=== PATIENT | female | born 1935 | race Caucasian/White ===

== ENCOUNTER 2018-08-29 17:11 | Emergency (ER) | payer MEDICARE, OTHER, SELFPAY ==
[2018-08-29 17:16] VITALS: BP 205/93; PULSE 72; RESP 20; TEMP 36.8; O2SAT 96
--- NOTE | 2018-08-29 18:13 | NUR.NOTE ---
patient denies nausea, double vision, patient to DI Nursing Note:
--- NOTE | 2018-08-29 18:26 | DI.CT_ITS ---
SYMPTOM/DIAGNOSIS: LT FOREHEAD TRAUMA, HEADACHE, NECK PAIN NONCONTRAST HEAD CT: There are no prior comparison exams. There is mild age related atrophy. No intracranial hemorrhage, mass or infarct is seen. There is no evidence of skull fracture or sinus opacification. There are no significant white matter changes. IMPRESSION: Negative head CT. CERVICAL SPINE CT: There is no evidence of fracture. The alignment appears normal. Degenerative disc changes are seen at C 4-5 and C 5-6. The airway appears intact. IMPRESSION: Degenerative changes. No acute abnormality. FACIAL CT: No facial fracture is identified. The orbits are unremarkable. The sinuses appear clear. There is no temporomandibular joint dislocation. There are degenerative changes of the temporomandibular joints. IMPRESSION: No acute abnormality.
[2018-08-29 19:02] VITALS: BP 187/86; PULSE 86; RESP 18; O2SAT 97
--- NOTE | 2018-08-29 19:03 | ED.GENADUL_ITS ---
Discharge Plan Disposition Patient Disposition: HOME Condition: Stable Discharge Details Chief Complaint: HeadInjury Clinical Impression: Traumatic hematoma of forehead, Hypertension, Cervical muscle strain Primary Care Provider: None,None ED Provider: Tomas Dunn Home Meds and New Rx's Prescriptions: Continued losartan 50 mg Tablet 50 mg PO DAILY RF: 0 Symbicort 160-4.5 mcg/actuation Hfa Aerosol Inhaler 1 puff Inhalation DAILY RF: 0 Citracal + Bone Density 300-200-13.5 mg-unit-mg Tablet 1 tab PO DAILY RF: 0 albuterol sulfate 90 mcg/actuation Aerosol Powdr Breath Activated 2 puff Inhalation PRN PRNRF: 0 Discharge Instructions Instructions: Cervical Strain (ED), Hypertension (ED), Hematoma (ED) Additional Instructions: Follow-up with your primary care provider for reassessment of your blood pressure preferably in the next week. You may continue to take acetaminophen as needed for discomfort and apply ice for any further swelling. Please take your other medications as prescribed and feel free to return to the emergency department for any new or significant worsening of symptoms or any further concerns you may have. Referrals: Primary Care Provider [Outside] - 1 week (For reassessment) Discharge Data Discharge Date/Time-TO BE ENTERED AT DEPARTURE: 08/29/18 19:11 Medical Decision Making Patient presenting to the emergency department for chief complaint of head injury. Patient states that approximately 4 days ago she slipped and fell striking her head against her car door. Patient denies any loss of consciousness, nausea vomiting, focal neurological deficits. Patient states that she is mostly concerned due to significant amount of bruising and ecchymosis to the face. Physical exam shows a left frontal hematoma to the forehead with what I feel is gravity dependent ecchymosis traveling down to the upper orbits bilaterally. Physical exam is otherwise unremarkable. Patient does state that she was seen at an urgent care clinic and diagnosed with hematoma but no imaging was performed. Patient denies any blood thinner use. Given patient's age and significant ecchymosis along with patient's concern I do feel that radiological imaging is warranted to rule out any acute cranial fracture but more suspicious of as mentioned above gravity dependent ecchymosis. Review of radiological imaging and radiologist interpretation shows no acute findings. Patient remained hypertensive in the emergency department and was informed that she should take her normally prescribed medication but I do not feel that any of her symptoms today have to do with her blood pressure. Patient was encouraged to follow-up with her primary care provider. Return precautions discussed. After discussion of diagnosis and plan of care patient and family have no further needs, questions, or concerns and states clear understanding to return to the emergency department for any worsening symptoms. HPI General Mode of arrival: ambulatory . Date/Time Provider Initiated Documentation: 08/29/18 17:20 . Limitations to Documentation: no limitations . Information obtained by: patient, family and RN notes reviewed . History of Present Illness 82 year old F presents to the emergency department with the chief complaint of head injury, described as mild, with intensity rated at 5. and is localized to the head. Patient started experiencing this day(s) (4) and it has been constant. No relieving factors improve symptom(s), No exacerbating factors reported . Patient notes no other symptoms.. Patient did receive the following treatments prior to arrival, other (Tylenol) Related Data Home Medications Medication Instructions Recorded Confirmed Citracal + Bone Density 1 tab PO DAILY 08/29/18 08/29/18 Symbicort 1 puff INHALATION DAILY 08/29/18 08/29/18 albuterol sulfate 2 puff INHALATION PRN PRN 08/29/18 08/29/18 losartan 50 mg PO DAILY 08/29/18 08/29/18 Allergies Allergy/AdvReac Type Severity Reaction Status Date / Time codeine AdvReac Psychosis Unverified 08/29/18 17:20 General Stated Complaint: HeadInjury THIERRY: 3 Review of Systems Constitutional Denies daytime sleepiness, Denies frequent falls, Reports headache(s), Denies lethargy and Denies poor appetite Eyes Denies blurry vision, Denies change in vision, Denies diplopia and Denies loss of vision ENT Denies vertigo, Denies dizziness, Reports headache(s) and Denies epistaxis Cardiovascular Denies chest pain, Denies syncope, Denies irregular heart rhythm and Denies dyspnea Respiratory Denies dyspnea Gastrointestinal Denies nausea and Denies vomiting Integumentary/Breasts Reports as per HPI Neurologic Reports as per HPI, Denies behavioral changes, Denies vertigo, Denies dizziness, Denies syncope, Denies frequent falls, Reports headache(s), Denies loss of vision, Denies memory loss and Denies seizure-like activity Psychiatric Denies behavioral changes and Denies memory loss PFSH Social History Smoking and Tabacco status: Former Tobacco Use Exam Const General: cooperative, comfortable and no acute distress Orientation: alert, awake and oriented x3 HENMT Head: no palpable skull fracture, no Salinas's sign, contusion left frontal, hematoma left frontal 3 in, no lacerations, no raccoon eyes and scalp tenderness Ears: hearing grossly normal bilaterally, external ears normal and TM's normal bilaterally General nose exam: external nose normal and nares normal Face and sinus: sinuses nontender Mouth: oral mucosae normal, lip normal and tongue normal Throat: posterior oropharynx normal, tonsils normal and uvula midline Eyes Visual Rice: normal visual rice by confrontation Alignment and Position: alignment normal Periorbital: periorbital findings abnormal bilaterally periorbital ecchymosis (upper orbits) Conjunctivae: conjunctivae normal Sclera: sclerae normal Cornea: corneas normal Pupils: PERRL EOM: EOM intact bilaterally and No nystagmus Neck Neck: normal visual inspection, full ROM, no lymphadenopathy and tender (left lateral soft tissue) Carotids: no bruits Resp Effort & Inspection: normal respiratory effort and able to speak in complete sentences Auscultation: clear to auscultation bilaterally Cardio Rate: regular rate Rhythm: regular rhythm Heart Sounds: S1 normal and S2 normal Neuro General: alert, awake, oriented x3, gait normal, tone normal, moves all extremities, normal light touch, pain and propioception, no meningeal signs, no focal motor deficits and CN's II-XI intact bilaterally Cranial Nerves: no nystagmus Cognition: normal cognition Speech: speech normal Course Vital Signs Temperature 36.8 C 08/29/18 17:16 Pulse 72 08/29/18 17:16 Respiratory Rate 20 08/29/18 17:16 Blood Pressure 205/93 H 08/29/18 17:16 Pulse Oximetry 96 08/29/18 17:16 Temperature 36.8 C 08/29/18 17:16 Temperature Source Temporal Artery Scan 08/29/18 17:16 Pulse 72 08/29/18 17:16 Respiratory Rate 20 08/29/18 17:16 Respiratory Effort Non-Labored 08/29/18 17:22 Respiratory Depth Normal 08/29/18 17:22 Respiratory Pattern Normal 08/29/18 17:22 Blood Pressure 205/93 H 08/29/18 17:16 Blood Pressure Position Sitting 08/29/18 17:16 Pulse Oximetry 96 08/29/18 17:16 Pain Level 5 08/29/18 17:16
--- NOTE | 2018-08-29 19:03 | DI.VRAD_ITS ---
EXAM: CT Head Without Contrast EXAM DATE/TIME: 08/29/2018 6:00 PM CLINICAL HISTORY: 82 years old, female; Pain and injury or trauma; Injury history: Hit head w/car door; Initial encounter; Blunt trauma (contusions or hematomas); Forehead; Headache; Type not specified; Neck pain; Injury details: Left forehead trauma-hit head w/car door. GUZMAN. Neck pain TECHNIQUE: Axial computed tomography images of the head/brain without contrast. All CT scans at this facility use at least one of these dose optimization techniques: automated exposure control; mA and/or kV adjustment per patient size (includes targeted exams where dose is matched to clinical indication); or iterative reconstruction. Coronal and sagittal reformatted images were created and reviewed. COMPARISON: No relevant prior studies available. FINDINGS: Brain: Mild cerebral atrophy. Minimal periventricular white matter hypodensity. No edema or hemorrhage. Ventricles: No ventriculomegaly. Bones/joints: No acute fracture. Sinuses: No acute sinusitis. Mastoid air cells: No mastoid effusion. Orbits: Presumed post surgical changes in the left lens. Soft tissues: Small focus of left frontal scalp swelling. IMPRESSION: No acute intracranial findings. EXAM: CT Maxillofacial Without Contrast EXAM DATE/TIME: 08/29/2018 6:00 PM CLINICAL HISTORY: 82 years old, female; Pain and injury or trauma; Injury history: Hit head w/car door; Initial encounter; Blunt trauma (contusions or hematomas); Forehead; Headache; Type not specified; Neck pain; Injury details: Left forehead trauma-hit head w/car door. GUZMAN. Neck pain TECHNIQUE: Axial computed tomography images of the face without intravenous contrast. All CT scans at this facility use at least one of these dose optimization techniques: automated exposure control; mA and/or kV adjustment per patient size (includes targeted exams where dose is matched to clinical indication); or iterative reconstruction. Coronal and sagittal reformatted images were created and reviewed. COMPARISON: No relevant prior studies available. FINDINGS: Orbits: Presumed post surgical changes in the left lens. Sinuses: Normal. No air-fluid levels. Bones/joints: Mild temporomandibular joint degenerative changes. No acute fracture or subluxation. Soft tissues: No significant facial soft tissue swelling. IMPRESSION: No acute bony pathology. EXAM: CT Cervical Spine Without Contrast EXAM DATE/TIME: 08/29/2018 6:00 PM CLINICAL HISTORY: 82 years old, female; Pain and injury or trauma; Injury history: Hit head w/car door; Initial encounter; Blunt trauma (contusions or hematomas); Forehead; Headache; Type not specified; Neck pain; Injury details: Left forehead trauma-hit head w/car door. GUZMAN. Neck pain TECHNIQUE: Axial computed tomography images of the cervical spine without intravenous contrast. All CT scans at this facility use at least one of these dose optimization techniques: automated exposure control; mA and/or kV adjustment per patient size (includes targeted exams where dose is matched to clinical indication); or iterative reconstruction. Coronal and sagittal reformatted images were created and reviewed. COMPARISON: No relevant prior studies available. FINDINGS: Vertebrae: No acute fracture or subluxation. Discs/Spinal canal/Neural foramina: Uncovertebral hypertrophy. Posterior disc osteophyte complexes, multilevel, neuroforaminal stenosis most pronounced at C4-C5 and C5-C6. No significant central canal stenosis. Multilevel disc space narrowing. Soft tissues: No suspicious lesions. IMPRESSION: No cervical spine fracture. Degenerative changes. Dictated and Authenticated by: Jennifer Marte MD. Ordering:ALEJANDRA Marin MD
--- NOTE | 2018-08-29 19:03 | NUR.NOTE ---
patient denies any complaints, will continue to monitor Nursing Note:
== END 2018-08-29 19:11 | disposition home or self-care (01) ==
PROVIDERS: Emergency Provider Nurse Practitioner Family
DX: S00.83XA Contusion of other part of head, initial encounter (principal); S16.1XXA Strain of muscle, fascia and tendon at neck level, initial encounter; I10 Essential (primary) hypertension; W01.0XXA Fall on same level from slipping, tripping and stumbling without subsequent striking against object, initial encounter
CPT/HCPCS: 99284; 70450; 70486; 72125

== ENCOUNTER 2022-11-07 07:00 | Day surgery (SDC) | payer MEDICARE, OTHER, SELFPAY ==
--- NOTE | 2022-11-07 06:33 | W.ANESPRE ---
General Info Date of Service Date Performed: 11/07/22 Height: 5 ft Weight: 45.132 kg Body Mass Index (BMI): 19.4 Surgical Procedure: Operation Date: 11/07/22 08:25 Proposed Procedure Side Surgeon p Cataract Extraction with IOL Implant Right Danny Brooks MD Meds Allergies and Home Medications Allergies Allergy/AdvReac Type Severity Reaction Status Date / Time sulfamethoxazole Allergy headache Verified 11/07/22 07:25 [From Bactrim] and shortness of breath. trimethoprim [From Bactrim] Allergy headache Verified 11/07/22 07:25 and shortness of breath. codeine AdvReac Psychosis Unverified 11/07/22 07:25 Home Medication Medication Instructions Recorded calcium carb,cit 300 mg-D3 200 1 tab PO DAILY 08/29/18 unit-min no.34-genistein 13.5 mg tablet (Citracal Plus Bone Density Builder) losartan 50 mg tablet 50 mg PO DAILY 08/29/18 albuterol sulfate 90 mcg/actuation 2 puff inhalation 6XD PRN 02/01/21 aerosol inhaler (ProAir HFA) amlodipine 5 mg tablet 5 mg PO DAILY 02/01/21 omeprazole 20 mg capsule,delayed 20 mg PO DAILY 02/01/21 release fluticasone fur. 100 mcg-umeclid 1 inh inhalation DAILY #60 ea 07/24/21 62.5 mcg-vilant 25 mcg inhalat.powder (Trelegy Ellipta) aspirin 81 mg tablet,delayed 81 mg PO DAILY 12/04/21 release atorvastatin 20 mg tablet 20 mg PO DAILY 12/04/21 magnesium 0.5 tab PO DAILY 12/04/21 vitamin A-vitamin C-vit E-min 1 tab PO DAILY 12/04/21 tablet Current Visit Medications: Current Medications Generic Name Dose Route Start Last Admin Trade Name Freq PRN Reason Stop Dose Admin Acetaminophen 1,000 mg 11/07/22 06:00 Acetaminophen 500 Mg Tab PO 12/07/22 05:59 Q4H PRN PRN Balanced Salt Solution 500 ml 11/07/22 06:00 Balanced Salt Soln.-Plus 500 Ml Bag OP 12/07/22 05:59 DIRECTED [facility] Miscellaneous Medication 0 ml 11/07/22 06:00 Prednisolone 1%, Moxifloxacin 0.5%, Nepafenac 0.1% 5ml Btl OD 06/11/23 05:59 DIRECTED [facility] Miscellaneous Medication 0 ml 11/07/22 06:00 Tropicam./Phenyleph. 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 states she had this worked up Cataract Claustrophobia Complete fecal incontinence Pleuritic chest pain Surgical History Surgical History History of cataract surgery History of colonoscopy History of surgery repair rectal prolapse Tobacco Smoking/Tobacco Use Status: Former Tobacco Use Alcohol Alcohol Intake: current Alcohol intake frequency: a few times a month Alcohol type: wine Substance Use Substance use: Never Substance use type: does not use Vital Signs and Lab Results Lab Results Blood Type / Crossmatch: No Data to Display Complete Blood Count: No Data to Display Complete Metabolic Panel: No Data to Display Liver Function Panel: No Data to Display Coagulation Panel: No Data to Display Cardiac Panel: No Data to Display Arterial Blood Gas: No Data to Display Venous Blood Gas: No Data to Display Pancreas Panel: No Data to Display Thyroid Panel: No Data to Display Infectious Disease: No Data to Display Blood Cultures: No Data to Display Toxicology Panel: No Data to Display Anesthesia Assessment and Plan Anesthesia History Personal History: No History of Anesthesia Complications Family History: No Family History of Anesthesia Complications Exercise Tolerance Exercise Tolerance: Metabolic Equivalents>4 Cardiac & Pulmonary Exam Cardiac Exam: Normal S1/S2 Heart Sounds Pulmonary Exam: Clear Bilateral Breath Sounds Implantable Cardiac Device Does patient have a Pacemaker or an ICD?: No Airway Exam Known Difficult Airway: No Mallampati Class: 3 Mouth Opening: Narrow (< 3cm) Thyromental Distance: Greater than 3 cm Neck Range of Motion: Limited ROM Neck Circumference: Normal Teeth Condition: Normal Dentition, Removable Dentures/Plates Upper and Removable Dentures/Plates Lower ASA Classification ASA Score: ASA 3 Emergency Case?: No NPO Status NPO Status: NPO Clears >2 hours, Solids >8 hours Anesthesia Plan Resuscitation Status: Full Code Anesthesia Technique: MAC Anesthesia Airway Planned: Natural Airway Monitors Used: Standard Monitors Preoperative Comments:: 86 yo female for cataract removal. Sig PMHx: HTN, COPD, tietze, vocal cord weakness. No MKO, understands she can ask for sedation if needed during the procedure via IV.
[2022-11-07 07:05] VITALS: BP 159/92; PULSE 80; RESP 16; TEMP 36.6; O2SAT 98
[2022-11-07 07:06] VITALS: BMI 19.4
[2022-11-07] MEDS: Tropicam./Phenyleph. (1/2.5%) 5 ML BTL OD ×3 (07:30→07:47)
[2022-11-07] MEDS: Balanced Salt Soln.-PLUS 500 ML BAG OP (08:13)
[2022-11-07] MEDS: Tetracaine 0.5% 4 ML BTL OD (08:15)
[2022-11-07] MEDS: Duovisc Viscoelastic System EACH 1 EACH (08:16)
[2022-11-07] MEDS: Lidocaine 1% Pres-Free 5 ML VIAL (08:17)
[2022-11-07] MEDS: Phenylephrine/Lidocaine (15/10) MG/ML 1 ML VIAL (08:19)
[2022-11-07] MEDS: Povidone-Iodine Ophth 30 ML BTL (08:20)
[2022-11-07] MEDS: Trypan Blue 0.06% 0.5 ML SYR (08:25)
[2022-11-07 08:51] VITALS: BP 168/88; PULSE 76; RESP 18; TEMP 36.3; O2SAT 99
--- NOTE | 2022-11-07 08:54 | W.PM.DSUDISC ---
Date of service: 11/07/22 Time of Service: 08:54 Discharge Plan Disposition Patient Disposition: Home Discharge Details Attending Provider: Danny Brooks Primary Care Provider: Cristine Field Home Meds and New Rx's Prescriptions: No Action amlodipine 5 mg tablet 5 mg PO DAILY omeprazole 20 mg capsule,delayed release(DR/EC) 20 mg PO DAILY albuterol sulfate [ProAir HFA] 90 mcg/actuation HFA aerosol inhaler 2 puff inhalation 6XD PRN Trelegy Ellipta 100-62.5-25 mcg blister with device 1 inh inhalation DAILY Qty: 60 2RF Ocuvite Tablet 1 tab PO DAILY magnesium Tablet 0.5 tab PO DAILY atorvastatin 20 mg Tablet 20 mg PO DAILY aspirin [Aspir-81] 81 mg Tablet,Delayed Release (Dr/Ec) 81 mg PO DAILY losartan 50 mg Tablet 50 mg PO DAILY Citracal Plus Bone Density 300-200-13.5 mg-unit-mg Tablet 1 tab PO DAILY Discharge Instructions Stand Alone Forms: Post-op Topical Cataract, Camilla Garcia (DSU) Discharge Orders Discharge Orders: Discharge Order (Routine); Ordered 11/07/22 Ordered By: Danny Brooks DS: Diagnosis Discharge Diagnosis (1) Nuclear age-related cataract, right eye: Status: Resolved (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
--- NOTE | 2022-11-07 08:54 | W.PM.OP ---
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 Cataract extraction by phacoemulsification with intraocular lens implantation, right eye, with pupillary expansion device SURGEON: Danny Brooks ANESTHESIA TYPE: Local By Surgeon and MAC Refer to Anesthesia Record PATHOLOGY: none sent COMPLICATIONS: None Patient was transported to: same day Patient's condition: stable Implants: Андрей and Андрей Tecnis Eyhance [id number] Indications: Progressive decreased vision due to cataract, right eye, with poorly dilating pupil, secondary to pseudoexfoliation Procedure Description: CATARACT SURGERY OPERATIVE REPORT PREOPERATIVE DIAGNOSIS: 1. Dense nuclear cataract, right eye 2. Poorly dilating pupil, right eye, secondary to pseudoexfoliation POSTOPERATIVE DIAGNOSIS: Same OPERATION: 1. Cataract extraction using phacoemulsification with posterior chamber intraocular lens implant, right eye. 2. Pupillary dilation and iris stabilization using Malyugin Ring IOL: IOL Conservation Educator/Model: Андрей & Андрей Tecnis Eyhance DIB00 IOL Power: + 20.0 diopters IOL Serial Number: [id number] Optic Diameter: 6.0mm Haptic/Overall Diameter: 13.0mm PHACO INFO: Darrell Centurion Vision System with OZil and Active Fluidics Cumulative Dispersed Energy (CDE): 13.8 seconds SURGEON: Danny Brooks MD, EDER ANESTHESIA: Monitored Anesthesia Care (MAC), with local sub-tenon's anesthetic infiltration COMPLICATIONS: None SPECIMENS: None INDICATIONS FOR PROCEDURE: The patient is an 86-year-old lady with history of diminished visual acuity in her right eye secondary to the development of nuclear cataract. She is noted to have pseudoexfoliation with pupil dilating only to 4 mm. She has previously undergone cataract surgery in the left eye in 2018. She now presents for cataract surgery in the right eye. PROCEDURE: The correct surgical eye was identified and marked as the right eye and the pupil was dilated in the preoperative area using mydriatics and cycloplegics. The dilated pupil size was 4.0 mm. The patient was brought to the operating room where cardiopulmonary monitoring was instituted and surgical time-out was performed, confirming the correct operative eye and IOL power. Topical anesthesia was administered and ophthalmic povidone-iodine 5% was instilled into the conjunctival fornices. Lidocaine gel was applied to the cornea and the leodan-ocular area was prepped with Betadine 10% solution and draped in the usual sterile fashion for intraocular surgery, including an aperture drape. A Tegaderm transparent film dressing was cut in half and used to cover the lashes and lid margins. Care was taken to sequester the lashes and lid margins under the Tegaderm dressing. A lid speculum was placed between the lids of the operative eye and the Darrell LuxOR Revalia operating microscope was maneuvered into position. Jose scissors were then used to make a conjunctival buttonhole approximately 6mm posterior to the limbus in the inferonasal quadrant. Blunt dissection was carried out to expose bare sclera, and a blunt-tipped sub-tenon?s anesthesia cannula was introduced and passed posteriorly along the globe where non-preserved plain lidocaine was injected into posterior sub-Tenon?s space. A sideport knife was used to make a paracentesis port inferiortemporally. Intraocular phenylephrine/lidocaine was injected in the anterior chamber. The anterior chamber was filled with cohesive viscoelastic. A keratome knife was used to construct a 2-plane near-clear corneal tunnel extending 2.0mm into clear cornea superiortemporally. A 6.25 mm Malyugin Ring was then inserted into the pupillary space and engaged with the Kuglen hook. The irrigation/aspiration handpiece was then used to remove the cohesive viscoelastic from the anterior chamber. VisionBlue was then injected into the anterior chamber and allowed to sit for 15 to 20 seconds, and then irrigated out with balanced salt solution. Viscoat was then used to fill the anterior chamber. A flap was raised on the anterior capsule and capsulorhexis forceps were used to complete a continuous curvilinear capsulorhexis of 5.0 mm. Balanced salt solution was then used to perform cortical cleaving hydrodissection and nuclear hydrodelineation until the lens could be freely rotated within the capsular bag. The lens nucleus was then disassembled and removed within the capsular bag and iris plane using phacoemulsification. Residual cortical material was removed using the 45-degree angled silicone I/A tip with 0.3mm port. The posterior capsule was carefully polished to remove as much residual lens epithelial cells as safely possible. The capsular bag was then inflated and the anterior chamber deepened with viscoelastic. The lens implant described above was inserted into the capsular bag using the Андрей and Андрей Simplicity pre-loaded injector. A Kuglen hook was used to dial the IOL into position. The Malyugin Ring was removed in the reverse order of its insertion. Residual viscoelastic was then removed first from posterior to the IOL, then from the anterior chamber using the I/A handpiece. The lens implant was noted to center nicely within the capsular bag. The incisions were stromally hydrated, and the anterior chamber was reformed using BSS. Then 0.5cc of moxifloxacin 1.0mg/ml were injected into the capsular bag and anterior chamber. The incisions were checked with a Weck spear and found to be secure. Several drops of ophthalmic povidone-iodine 5% were then applied to the eye followed by two drops of Imprimis combination prednisolone/moxifloxacin/nepafenac solution. The drapes were removed and a clear plastic protective eye shield was placed over the eye. The patient was then returned to [facility] Surgery in stable condition.
--- NOTE | 2022-11-07 09:03 | W.ANESPOSTOP ---
Postoperative Evaluation Date, Time and Location Date Performed: 11/07/22 Time Performed: 09:03 Patient Location: Day Surgery Unit Vital Signs Most Recent Imported Vital Signs: Most Recent Vital Signs Temp Pulse Resp BP Pulse Ox 36.3 C L 76 18 168/88 H 99 11/07/22 08:51 11/07/22 08:51 11/07/22 08:51 11/07/22 08:51 11/07/22 08:51 Pain Score Most Recent Pain Score: Most Recent Pain Score Pain Level 0 11/07/22 08:51 Assessment Mental Status: Awake (Alert & Oriented to Patient Baseline) Airway and Respiratory Function: Patent airway with normal (patient baseline) respiratory exam Cardiovascular Function: Hemodynamically Stable Hydration Status: Adequately Hydrated Nausea & Vomiting: No Nausea or Vomiting Pain: Pt. Denies Any Pain Peripheral Nerve Block: Patient did not receive a nerve block
== END 2022-11-07 09:08 | disposition home or self-care (01) ==
LOC: SUR 07:01
PROVIDERS: PCP Physician Assistant; Visit Provider Ophthalmology
PROC: (CPT 66982; principal; 2022-11-07 08:15)
DX: H25.11 Age-related nuclear cataract, right eye (principal); H26.8 Other specified cataract; I10 Essential (primary) hypertension; K21.9 Gastro-esophageal reflux disease without esophagitis; J44.9 Chronic obstructive pulmonary disease, unspecified
CPT/HCPCS: 66982; V2632

== ENCOUNTER 2024-01-08 11:27 | Outpatient (REF) | payer MEDICARE, SELFPAY ==
--- NOTE | 2024-01-08 10:36 | SKI_PTH ---
PATIENT: Mayte Headley LOC: [facility] U#:[id number] AGE/SX: 88/F ROOM: RE01/08/[address]: HENRY Alcocer : 1935 BED: DIS: 01/08/2024 SPEC #: [id number] RECD: 01/08/24 14:55 STATUS: ASAEL REQ #: [id number] RICKY: 01/08/24 10:[address]: Neeraj Cuevas DEPT: Surgical Specimen RECD BY: Nupur Morel ENTERED: 01/08/24 14:57 SP TYPE: BETTIE OTHR DR: Cristine Field MD Tissues: 1 - SKIN BIOPSY(SHAVE/PUNCH) 2 - SKIN BIOPSY(SHAVE/PUNCH) Procedures: SKIN LEVEL 4 Comments: [id number]
== END 2024-01-08 11:28 | disposition home or self-care (01) ==
LOC: LBN 11:27
PROVIDERS: PCP Physician Assistant; Visit Provider Physician Assistant
DX: C44.329 Squamous cell carcinoma of skin of other parts of face (principal); C44.619 Basal cell carcinoma of skin of left upper limb, including shoulder
CPT/HCPCS: 88305